=== PATIENT | female | born 1980 | race African-American/Black ===

== ENCOUNTER 2019-02-26 03:17 | Emergency (ER) | payer SELFPAY ==
[~2019-02-26] VITALS: Ht 165.1 cm; Wt 127.0 kg
[2019-02-26] MEDS ORDERED: FAMOTIDINE 20MG/2ML VIAL IV STA (04:11)
[2019-02-26] MEDS ORDERED: MORPHINE SULFATE 4 MG/ML CPJ (NOT FOR IM USE) IV STA (04:11)
[2019-02-26] MEDS ORDERED: SODIUM CHLORIDE 0.9% 1,000 ML IV ONE (04:11)
[2019-02-26] MEDS ORDERED: ONDANSETRON HCL 4MG/2ML INJ IV STA (04:11)
[2019-02-26 04:33] LABS: BASOPHILS % 0.7 % (0.0-2.0); EOSINOPHILS % 1.8 % (0.0-5.0); HEMATOCRIT. 36.2 % (36.0-48.0); HEMOGLOBIN. 11.9 g/dL (12.0-16.0); LYMPHOCYTES % 35.9 % (20.0-50.0); MEAN CORPUSCULAR HEMOGLOBIN 27.8 pg (28.0-32.0); MEAN CORPUSCULAR VOLUME 84.7 fL (81.0-99.0); MONOCYTES % 6.5 % (2.0-8.0); NEUTROPHILS % 55.1 % (40.0-76.0); PLATELET 266 x1000/uL (130-400); RED BLOOD CELL COUNT 4.28 mill/uL (4.2-5.4); RED CELL DISTRIBUTION WIDTH 14.5 % (11.6-14.6)
[2019-02-26 04:34] LABS: CLARITY URINE CLOUDY (CLEAR); COLOR URINE YELLOW (YELLOW); KETONES URINE TRACE (NEGATIVE); LEUKOCYTE ESTERASE URINE 2+ (NEGATIVE); NITRITE URINE NEGATIVE (NEGATIVE); OCCULT BLOOD URINE TRACE (NEGATIVE); PROTEIN URINE NEGATIVE (NEGATIVE); SPECIFIC GRAVITY URINE 1.023 (1.005-1.030)
[2019-02-26 04:39] LABS: CHLORIDE 108 mEq/L (98-107)
[2019-02-26 10:00] VITALS: BP 113/71
== END 2019-02-26 10:05 | disposition home or self-care (01) ==
LOC: ER 03:58
DX: N39.0 Urinary tract infection, site not specified (principal); K80.20 Calculus of gallbladder without cholecystitis without obstruction; R16.0 Hepatomegaly, not elsewhere classified; R74.0 Nonspecific elevation of levels of transaminase and lactic acid dehydrogenase [LDH]; Z88.0 Allergy status to penicillin
CPT/HCPCS: 36415; 76705; 80053; 81003; 81025; 83690; 85025; 87077; 87086; 87186; 96374; 96375; 99284; J2270; J2405; J3490; J7030

== ENCOUNTER 2024-04-16 12:44 | Emergency (ER) | payer BC ==
[~2024-04-16] VITALS: Ht 167.6 cm; Wt 80.0 kg
[2024-04-16 12:51] VITALS: O2SAT 100
[2024-04-16 15:25] LABS: BASOPHILS % 0.8 % (0.0-2.0); DIFFERENTIAL COMMENT 0; EOSINOPHILS % 2.2 % (0.0-5.0); HEMATOCRIT. 32.1 % (36.0-48.0); HEMOGLOBIN. 9.6 g/dL (12.0-16.0); LYMPHOCYTES % 25.7 % (20.0-50.0); MEAN CORPUSCULAR HEMOGLOBIN 21.2 pg (28.0-32.0); MEAN CORPUSCULAR HGB CONC 29.8 g/dL (31.0-37.0); MEAN CORPUSCULAR VOLUME 71.1 fL (81.0-99.0); MEAN PLATELET VOLUME 7.9 fl (7.4-10.4); MONOCYTES % 9.4 % (2.0-8.0); NEUTROPHILS % 61.9 % (40.0-76.0); PLATELET 374 x1000/uL (130-400); RED BLOOD CELL COUNT 4.51 mill/uL (4.2-5.4); RED CELL DISTRIBUTION WIDTH 17.4 % (11.6-14.6); WHITE BLOOD COUNT 8.3 x1000/uL (4.5-11.0)
[2024-04-16 15:30] LABS: CHLORIDE 106 mEq/L (98-107); POTASSIUM 4.1 mEq/L (3.5-5.1); SODIUM 138 mEq/L (136-145)
[2024-04-16 15:31] LABS: CARBON DIOXIDE 29 mEq/L (21-32)
[2024-04-16 15:32] LABS: CALCIUM 9.8 mg/dL (8.7-10.4)
[2024-04-16 15:36] LABS: CREATININE 0.7 mg/dL (0.6-1.0); GLUCOSE 106 mg/dL (70-105); UREA NITROGEN BLOOD 10 mg/dL (9-23)
[2024-04-16] MEDS ORDERED: ACETAMINOPHEN 325MG TABLET PO ONE (15:45)
[2024-04-16] MEDS ORDERED: LORAZEPAM 1MG TABLET PO ONE (15:45)
[2024-04-16 15:47] LABS: TROPONIN I HIGH SENSITIVITY < 4 ng/L (3.0-34)
[2024-04-16 16:56] LABS: HCG SCREEN NEGATIVE
[2024-04-16] MEDS: ACETAMINOPHEN 325MG TABLET PO NR (17:20)
[2024-04-16] MEDS: LORAZEPAM 1MG TABLET PO NR (17:20)
[2024-04-16 18:25] LABS: TROPONIN I HIGH SENSITIVITY < 4 ng/L (3.0-34)
[2024-04-16 19:00] VITALS: BP 130/66; PULSE 78; RESP 17; TEMP 36.61404; O2SAT 99
== END 2024-04-16 20:45 | disposition home or self-care (01) ==
LOC: ER 12:44
DX: F41.9 Anxiety disorder, unspecified (principal); I95.9 Hypotension, unspecified; Z88.0 Allergy status to penicillin
CPT/HCPCS: 80048; 84703; 85025; 84484; 36415; 71045; 93005; 99285; Z7610